=== PATIENT | male | born 1990 ===

== ENCOUNTER 2017-07-16 18:39 | Emergency (ER) | payer BC ==
[2017-07-16 18:54] VITALS: BP 138/77
[2017-07-16] MEDS ORDERED: Azithromycin TAB* 250 MG PO ONE (19:43)
--- NOTE | 2017-07-16 20:19 | UC ---
Gustavo Camp Natalie, scribed for Ryan Botello MD on 07/16/17 at 2014 . Respiratory Complaint HPI - HPI Summary HPI Summary: The pt is a 27 y/o M presenting to [facility] c/o respiratory symptoms starting . He was not feeling well so he visited his PCP on 07/13/17, who told him that he possibly had the flu because he was exposed to it, but he was not tested or given medication. He states "I've been coughing to hard that it hurts to breathe." The pain is rated 7/10. The pt additionally c/o body aches, headache, sore throat, post nasal drip and green nasal discharge, and productive coughing. He has taken Dayquil, Nyquil, Mucinex, and Tylenol to treat the pain [employer]. - History of Current Complaint Chief Complaint: UCRespiratory Stated Complaint: COUGH Time Seen by Provider: 07/16/17 19:28 Hx Obtained From: Patient Onset/Duration: Lasting Days, Still Present Timing: Constant Severity Initially: Moderate Severity Currently: Moderate Pain Intensity: 7 Pain Scale Used: 0-10 Numeric Character: Cough: Productive Associated Signs And Symptoms: Positive: Nasal Congestion, Sinus Discomfort - Allergies/Home Medications Allergies/Adverse Reactions: Allergies Allergy/AdvReac Type Severity Reaction Status Date / Time amoxicillin [From Augmentin] Allergy Severe Rash Verified 07/16/17 18:56 clavulanic acid Allergy Severe Rash Verified 07/16/17 18:56 [From Augmentin] Sulfa (Sulfonamide Allergy Severe Hives Verified 07/16/17 18:56 Antibiotics) PMH/Surg Hx/FS Hx/Imm Hx Other History Of: Negative For: HIV, Hepatitis B, Hepatitis C, Anticoagulant Therapy - Surgical History Surgical History: None - Family History Family History: NON CONTRIBUTORY - Social History Alcohol Use: Occasionally Substance Use Type: None Smoking Status (MU): Never Smoked Tobacco Household Exposure Type: Cigars Review of Systems ENT: Sore Throat, Nasal Discharge, Sinus Congestion Respiratory: Cough Cardiovascular: Chest Pain Neurological: Headache, Other - body aches All Other Systems Reviewed And Are Negative: Yes Physical Exam Triage Information Reviewed: Yes Appearance: No Pain Distress, Ill-Appearing - mildly Vital Signs: Initial Vital Signs Temp 100.5 F 07/16/17 18:50 Pulse 79 07/16/17 18:50 Resp 16 03/25/18 18:50 BP 138/77 07/16/17 18:50 Pulse Ox 100 07/16/17 18:50 Vital Signs Reviewed: Yes Eyes: Positive: Other: - EOMI, JOSEPHINE ENT: Positive: Other - positive rhinorrhea, posterior pharynx mild erythema, post anterior cervical lymphadenopathy Neck: Positive: Supple, Nontender Respiratory: Positive: Other: - breath sounds present, trasmitted upper respiratory sounds in upper airway Cardiovascular: Positive: RRR Abdomen Description: Positive: Nontender, Soft Bowel Sounds: Positive: Present Musculoskeletal Exam: Normal Musculoskeletal: Positive: Strength Intact, ROM Intact Neurological: Positive: Other: - normal, sensory/motor intact, A&O x3 Psychological: Positive: Other: - affect/mood appropriate Skin: Positive: Other - warm, color reflects adequate perfusion, dry UC Diagnostic Evaluation - Laboratory O2 Sat by Pulse Oximetry: 100 Respiratory Course/Dx - Course Course Of Treatment: Medications reviewed. Allergies noted. BP noted and advised to follow up with PCP. RX ZPAC, CONTINUE SX TREATMENT,F/U PMD; RECHECK SOONER IF WORSE. - Differential Dx/Diagnosis Provider Diagnoses: BRONCHITIS Discharge - Sign-Out/Discharge Documenting (check all that apply): Discharge - Discharge Plan Condition: Stable Disposition: HOME Discharge Disposition Comment: The pt will be discharged home. Prescriptions: Azithromycin 250 mg PO DAILY #4 tablet Patient Education Materials: Acute Bronchitis (ED) Forms: *Work Release Referrals: Vinayak Swan MD [Primary Care Provider] - Additional Instructions: FOLLOW UP WITH YOUR DOCTOR. GET RECHECKED FOR ANY WORSENING OF YOUR CONDITION OR QUESTIONS OR CONCERNS. YOUR BLOOD PRESSURE WAS ELEVATED TODAY; FOLLOW UP WITH YOUR PRIMARY CARE DOCTOR WITHIN ONE WEEK. - Billing Disposition and Condition Condition: STABLE Disposition: HOME The documentation as recorded by the Gustavo tran Natalie accurately reflects the service I personally performed and the decisions made by me, Ryan Botello MD.
== END 2017-07-16 19:56 | disposition home or self-care (01) ==
LOC: UCEAST 18:39
DX: J40 Bronchitis, not specified as acute or chronic (principal); Z88.3 Allergy status to other anti-infective agents; Z88.0 Allergy status to penicillin
CPT/HCPCS: 99212; A9270-GY; G0463